=== PATIENT | male | born 1995 | race African-American/Black ===

== ENCOUNTER 2020-07-22 02:20 | Emergency (ER) | payer SELFPAY ==
[2020-07-22] MEDS ORDERED: diphenhydrAMINE 50 MG/ML VIAL ONE (02:31)
[2020-07-22] MEDS ORDERED: Metoclopramide HCl 10 MG/2 ML VIAL ONE (02:31)
[2020-07-22] MEDS ORDERED: Ketorolac Tromethamine 30 MG/ML VIAL ONE (04:23)
== END 2020-07-22 05:52 | disposition home or self-care (01) ==
LOC: ERS 02:20
DX: R51.9 Headache, unspecified (principal); F17.210 Nicotine dependence, cigarettes, uncomplicated
CPT/HCPCS: 70450; 96365; 96375; J1200; J1885; J2765